=== PATIENT | male | born 1995 | race Hispanic/Latino ===

== ENCOUNTER 2019-03-06 14:56 | Emergency (ER) | payer SELFPAY ==
[2019-03-06] MEDS ORDERED: HYDROCODONE/APAP 10/325 TAB ONE (16:09)
--- NOTE | 2019-03-06 16:28 | ER ---
Nurse's Notes [facility] Name: Jose Padilla Age: 24 yrs Sex: Male : 1995 Arrival Date: 03/06/2019 Time: 15:00 Bed 12 Private MD: Diagnosis: Sprain of ankle;Sprain of deltoid ligament of right ankle Presentation: 03/06 15:06 Presenting complaint: Right foot pain 8/10 after stepping in pothole yesterday. hb Transition of care: patient was not received from another setting of care. Onset of symptoms was March 05, 2019. Risk Assessment: Do you want to hurt yourself or someone else? Patient reports no desire to harm self or others. Initial Sepsis Screen: Does the patient meet any 2 criteria? No. Patient's initial sepsis screen is negative. Does the patient have a suspected source of infection? No. Patient's initial sepsis screen is negative. Care prior to arrival: Medication(s) given: Motrin, at 1200. 15:06 Method Of Arrival: Ambulatory 15:06 Acuity: JIMENEZ 4 hb Triage Assessment: 16:47 Injury Description: na. rv Historical: - Allergies: 15:07 No Known Allergies; hb - Home Meds: 15:07 None [Active]; hb - PMHx: 15:07 None; hb - PSHx: 15:07 None; hb - Immunization history:: Adult Immunizations up to date. - Social history:: Smoking status: Patient uses tobacco products, smokes one-half pack cigarettes per day. - Ebola Screening: : No symptoms or risks identified at this time. - Family history:: not pertinent. Screenin:49 Abuse screen: Denies threats or abuse. Denies injuries from another. Nutritional rv screening: No deficits noted. Tuberculosis screening: No symptoms or risk factors identified. Fall Risk None identified. Assessment: 15:45 General: Appears in no apparent distress. uncomfortable, Behavior is calm, cooperative. rv Pain: Complains of pain in right foot. Neuro: Level of Consciousness is awake, alert, obeys commands, Oriented to person, place, time, situation. Cardiovascular: Patient's skin is warm and dry. Respiratory: Airway is patent. GI: No signs and/or symptoms were reported involving the gastrointestinal system. : No signs and/or symptoms were reported regarding the genitourinary system. EENT: No signs and/or symptoms were reported regarding the EENT system. Derm: Skin is intact. Musculoskeletal: Swelling present in right ankle Reports pain in right ankle since last night. Pain is 4 out of 10 on a pain scale. Vital Signs: 15:07 BP 131 / 80; Pulse 85; Resp 16; Temp 97.4; Pulse Ox 100% on R/A; Weight 99.79 kg; hb Height 5 ft. 10 in. (177.80 cm); Pain 8/10; 16:45 BP 126 / 84; Pulse 79; Resp 17; Temp 97.8; Pulse Ox 98% ; rv 15:07 Body Mass Index 31.57 (99.79 kg, 177.80 cm) hb ED Course: 15:00 Patient arrived in ED. rg4 15:07 Triage completed. hb 15:07 Arm band placed on left wrist. 15:09 Joaquin Reveles MD is Attending Physician. [facility] 15:28 Josue John, CAROL is Primary Nurse. rv 15:49 Patient has correct armband on for positive identification. Call light in reach. Adult rv w/ patient. Pulse ox on. NIBP on. 16:27 Ankle Right 3 View XRAY In Process Unspecified. EDMS 16:27 Rich Flynn MD is Referral Physician. [facility] 16:46 No provider procedures requiring assistance completed. Patient did not have IV access rv during this emergency room visit. 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 roddy 16:46 Discharged to home ambulatory, with walking boot rv 16:46 Condition: good 16:46 Discharge instructions given to patient, family, Instructed on discharge instructions, follow up and referral plans. medication usage, Demonstrated understanding of instructions, follow-up care, medications, Prescriptions given X 2. 16:47 Patient left the ED. rv Signatures: Dispatcher [employer] EDMS Joaquin Reveles MD MD cha Baxter, Heather, RN RN Pat Gudino rg4 Josue John RN RN rv
--- NOTE | 2019-03-06 16:28 | EDPHYS ---
Physician Documentation [facility] Name: Jose Padilla Age: 24 yrs Sex: Male : 1995 Arrival Date: 03/06/2019 Time: 15:00 Bed 12 Private MD: ED Physician Joaquin Reveles HPI: 03/06 15:48 This 24 yrs old Male presents to ER via Ambulatory with complaints of Foot roddy Injury. 15:48 The patient presents with decreased range of motion, an injury, pain. The complaints roddy affect the right ankle. Onset: The symptoms/episode began/occurred 1 day(s) ago. Context: resulted from a mis-step by the patient, Associated signs and symptoms: The patient has no apparent associated signs or symptoms. Modifying factors: The symptoms are alleviated by elevation of extremity, the symptoms are aggravated by movement. Severity of symptoms: At their worst the symptoms were mild. The patient has not experienced similar symptoms in the past. Historical: - Allergies: 15:07 No Known Allergies; hb - Home Meds: 15:07 None [Active]; hb - PMHx: 15:07 None; hb - PSHx: 15:07 None; hb - Immunization history:: Adult Immunizations up to date. - Social history:: Smoking status: Patient uses tobacco products, smokes one-half pack cigarettes per day. - Ebola Screening: : No symptoms or risks identified at this time. - Family history:: not pertinent. ROS: 15:48 Constitutional: Negative for fever, chills, and weight loss, Eyes: Negative for injury, roddy pain, redness, and discharge, ENT: Negative for injury, pain, and discharge, Neck: Negative for injury, pain, and swelling, Cardiovascular: Negative for chest pain, palpitations, and edema, Respiratory: Negative for shortness of breath, cough, wheezing, and pleuritic chest pain, Abdomen/GI: Negative for abdominal pain, nausea, vomiting, diarrhea, and constipation, Back: Negative for injury and pain, : Negative for injury, bleeding, discharge, and swelling, Skin: Negative for injury, rash, and discoloration, Neuro: Negative for headache, weakness, numbness, tingling, and seizure, Psych: Negative for depression, anxiety, suicide ideation, homicidal ideation, and hallucinations, Allergy/Immunology: Negative for hives, rash, and allergies, Endocrine: Negative for neck swelling, polydipsia, polyuria, polyphagia, and marked weight changes, Hematologic/Lymphatic: Negative for swollen nodes, abnormal bleeding, and unusual bruising. 15:48 MS/extremity: Positive for decreased range of motion, pain, swelling, tenderness, of the right ankle and anterior aspect of right ankle. Exam: 15:48 Constitutional: This is a well developed, well nourished patient who is awake, alert, roddy and in no acute distress. Head/Face: Normocephalic, atraumatic. Eyes: Pupils equal round and reactive to light, extra-ocular motions intact. Lids and lashes normal. Conjunctiva and sclera are non-icteric and not injected. Cornea within normal limits. Periorbital areas with no swelling, redness, or edema. ENT: Nares patent. No nasal discharge, no septal abnormalities noted. Tympanic membranes are normal and external auditory canals are clear. Oropharynx with no redness, swelling, or masses, exudates, or evidence of obstruction, uvula midline. Mucous membranes moist. Neck: Trachea midline, no thyromegaly or masses palpated, and no cervical lymphadenopathy. Supple, full range of motion without nuchal rigidity, or vertebral point tenderness. No Meningismus. Chest/axilla: Normal chest wall appearance and motion. Nontender with no deformity. No lesions are appreciated. Cardiovascular: Regular rate and rhythm with a normal S1 and S2. No gallops, murmurs, or rubs. Normal PMI, no JVD. No pulse deficits. Respiratory: Lungs have equal breath sounds bilaterally, clear to auscultation and percussion. No rales, rhonchi or wheezes noted. No increased work of breathing, no retractions or nasal flaring. Abdomen/GI: Soft, non-tender, with normal bowel sounds. No distension or tympany. No guarding or rebound. No evidence of tenderness throughout. Back: No spinal tenderness. No costovertebral tenderness. Full range of motion. Skin: Warm, dry with normal turgor. Normal color with no rashes, no lesions, and no evidence of cellulitis. Neuro: Awake and alert, GCS 15, oriented to person, place, time, and situation. Cranial nerves II-XII grossly intact. Motor strength 5/5 in all extremities. Sensory grossly intact. Cerebellar exam normal. Normal gait. Psych: Awake, alert, with orientation to person, place and time. Behavior, mood, and affect are within normal limits. 15:48 Musculoskeletal/extremity: ROM: limited active range of motion, limited passive range of motion, limited active range of motion due to pain, limited passive range of motion due to pain, Circulation is intact in all extremities. Sensation intact. Compartment Syndrome exam of affected extremity: is normal. Weight bearing: can bear weight with assistance only, DVT Exam: negative Homans' sign noted on exam, no appreciated bluish discoloration, no erythema, no increased warmth, pain, swelling, tenderness. Vital Signs: 15:07 BP 131 / 80; Pulse 85; Resp 16; Temp 97.4; Pulse Ox 100% on R/A; Weight 99.79 kg; hb Height 5 ft. 10 in. (177.80 cm); Pain 8/10; 16:45 BP 126 / 84; Pulse 79; Resp 17; Temp 97.8; Pulse Ox 98% ; rv 15:07 Body Mass Index 31.57 (99.79 kg, 177.80 cm) hb MDM: 15:09 Patient medically screened. [facility] 15:51 Data reviewed: vital signs, nurses notes, radiologic studies, plain films. 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 Impression: Sprain of ankle, Sprain of deltoid ligament of right ankle. - Condition is Stable. - Discharge Instructions: Ankle Sprain. - Prescriptions for Ibuprofen 600 mg Oral Tablet - take 1 tablet by ORAL route every 6 hours As needed take with food; 20 tablet. Tylenol- Codeine #3 300-30 mg Oral Tablet - take 2 tablet by ORAL route every 6 hours As needed; 30 tablet. - Medication Reconciliation Form, Thank You Letter, Antibiotic Education, Prescription Opioid Use, Work release form form. - Follow up: Private Physician; When: 2 - 3 days; Reason: Recheck today's complaints, Continuance of care, Re-evaluation by your physician. Follow up: Dr. Rich Flynn; When: 2 - 3 days; Reason: Recheck today's complaints, Continuance of care, Re-evaluation by your physician. - Problem is new. - Symptoms have improved. Signatures: Dispatcher [employer] EDMS Joaquin Reveles MD MD cha Baxter, Heather, CAROL RN Josue John RN RN rv Corrections: (The following items were deleted from the chart) 16:47 16:27 03/06/2019 16:27 Discharged to Home. Impression: Sprain of ankle; Sprain of rv deltoid ligament of right ankle. Condition is Stable. Discharge Instructions: Ankle Sprain. Prescriptions for Ibuprofen 600 mg Oral Tablet - take 1 tablet by ORAL route every 6 hours As needed take with food; 20 tablet, Tylenol-Codeine #3 300-30 mg Oral Tablet - take 2 tablet by ORAL route every 6 hours As needed; 30 tablet. and Forms are Medication Reconciliation Form, Thank You Letter, Antibiotic Education, Prescription Opioid Use. Follow up: Private Physician; When: 2 - 3 days; Reason: Recheck today's complaints, Continuance of care, Re-evaluation by your physician. Follow up: Dr. Rich Flynn; When: 2 - 3 days; Reason: Recheck today's complaints, Continuance of care, Re-evaluation by your physician. Problem is new. Symptoms have improved. roddy
--- NOTE | 2019-03-06 16:35 | RAD REPORT ---
EXAM DESCRIPTION: RAD - Ankle Right 3 View - 03/06/2019 4:26 pm CLINICAL HISTORY: Pain;Swelling COMPARISON: No comparisons FINDINGS: Moderate soft tissue swelling is present involving the lateral malleolus. Tiny plantar gena caneal spur seen. No acute fracture or dislocation evident.
== END 2019-03-06 16:47 | disposition home or self-care (01) ==
LOC: ER 14:56
DX: S93.421A Sprain of deltoid ligament of right ankle, initial encounter (principal); F17.210 Nicotine dependence, cigarettes, uncomplicated
CPT/HCPCS: 99284